=== PATIENT | male | born 1975 | race Hispanic/Latino ===

== ENCOUNTER → 2017-06-06 | Outpatient (CLI) | payer OTHER ==
--- NOTE | 2017-06-06 13:22 | Diagnostic Imaging Report ---
PROCEDURE:X-RAY RIGHT SHOULDER, COMPLETE COMPARISON:None. INDICATIONS:POP IN SHOULDER, PAIN FINDINGS: There are no fractures, dislocations, lytic or blastic lesions. The bones are well-mineralized. The soft-tissues are unremarkable. CONCLUSION: No acute radiographic abnormality. Dictated by: Bereket Parker M.D. on 06/06/2017 at 13:23 Electronically approved by: Bereket Parker M.D. on 06/06/2017 at 13:23
== END ==
LOC: EDSEX 11:46 → RAD 11:46
PROVIDERS: ATTEND Family Medicine
DX: M25.511 Pain in right shoulder (principal)